=== PATIENT | female | born 1980 | race Caucasian/White ===

== ENCOUNTER 2024-11-23 11:38 | Day surgery (SDC) | payer BC, SELFPAY ==
[2024-11-21 17:36] VITALS: BMI 31.2
--- NOTE | 2024-11-23 11:40 | EXP.HP ---
History of Present Illness *Admission Date: 11/23/24 *History of present illness: Mrs. Chapin is a 44-year-old female who is here for diagnostic EGD secondary to noncardiac chest pain, dyspepsia and dysphagia. The examination is deemed medically necessary for diagnostic EGD. The patient has been seen, interviewed and examined prior to the procedure by both myself and the anesthesia provider. [facility] Disclaimer: The information contained in this section may have been updated after the patient was seen, as this information can be updated by other users. Medical History Scoliosis Vaginal endometriosis History of DVT of lower extremity Surgical History History of tubal ligation History of back surgery Family History Mother Heart attack Father Hypertension Hyperlipidemia Cancer Social History Smoking Status: Never smoker alcohol intake: never substance use type: denies use current occupational status: employed Travel in the last 8 weeks?: Inside the [place] household members: spouse and children housing: house Have you lived/traveled outside [place] in past 30 days?: No Contact w/someone who lives/traveled outside [place] past 30 days?: No Exposure to someone with infectious disease in past 14 days?: No Do you have a fever (greater than 100.4 F or 38 C)?: No Have you tested positive for COVID-19?: No Exposed to someone with COVID-19 in past 14 days?: No Do you have a sore throat?: No Do you have a cough?: No Do you have any weakness?: No Do you have any diarrhea?: No Are you experiencing any unusual bleeding?: No Do you have any muscle aches/pain?: No Do you have any abdominal pain?: No Are you experiencing loss of taste or smell?: No Review of Systems Review of Systems Review of systems (narrative): Negative *Cardiovascular Comments: Negative *Gastrointestinal Comments: Negative *Genitourinary Comments: Negative *Musculoskeletal Comments: Negative *Neurologic Comments: Negative Meds Home Medications and Allergies Home Medications ?Medication ?Instructions ?Recorded ?Confirmed ?Type aspirin 81 mg tablet,delayed 81 mg PO DAILY 09/07/24 11/21/24 History release (Adult Aspirin Regimen) cetirizine 10 mg capsule (Zyrtec) 10 mg PO DAILY 09/07/24 11/21/24 History cholecalciferol (vitamin D3) 125 125 mcg PO DAILY 09/07/24 11/21/24 History mcg (5,000 unit) capsule fluoxetine 20 mg capsule 20 mg PO DAILY 09/07/24 11/21/24 History omeprazole 40 mg capsule,delayed 40 mg PO DAILY 09/07/24 11/21/24 History release cholecalciferol (vitamin D3) 125 5,000 unit PO DAILY 11/21/24 11/21/24 History mcg (5,000 unit) tablet (Vitamin D3) New Prescriptions to Start Prescriptions: Allergies Allergy/AdvReac Type Severity Reaction Status Date / Time amoxicillin (From Augmentin) Allergy Rash Verified 11/21/24 14:36 azithromycin Allergy Vomiting Verified 11/21/24 14:36 clavulanic acid (From Allergy Rash Verified 11/21/24 14:36 Augmentin) codeine Allergy Swelling Verified 11/21/24 14:36 of Lip/Tongue/Throat Penicillins Allergy Rash Verified 11/21/24 14:36 Exam Data for Last 24 hours I & O for Last 24 hours: Intake & Output 11/20/24 11/21/24 11/22/24 11/23/24 23:59 23:59 23:59 23:59 Weight 160 lb *Routine HEENT Exam Head: Present normocephalic Eye: Present EOMI and PERRL ENT: Present mucous membranes moist *Routine Neck Exam Neck: Present supple *Routine Respiratory Exam Respiratory: Present CTA bilaterally *Routine Cardiovascular Exam Cardiovascular: Present RRR *Routine Abdominal Exam Abdominal: Present soft and normoactive bowel sounds; Absent tenderness *Routine Rectal Exam Rectal:: deferred *Routine Genitalia Exam Genitalia:: deferred *Routine Extremities Exam Extremities: Absent cyanosis, clubbing or edema *Routine Skin Exam Skin: Present warm; Absent rash *Routine Neurological Exam Neurological: Present alert and oriented X3 Assessment and Plan *Assessment and plan (1) Non-cardiac chest pain: Status: Acute Category: Medical Code(s): R07.89 - Other chest pain (2) Heartburn: Status: Acute Category: Medical Code(s): R12 - Heartburn (3) Dysphagia: Status: Acute Category: Medical Code(s): R13.10 - Dysphagia, unspecified (4) Dyspepsia: Status: Acute Category: Medical Code(s): R10.13 - Epigastric pain Plan A/P: 1. Noncardiac chest pain with dyspepsia and dysphagia and heartburn is the preprocedural diagnosis. The patient will be anesthetized/sedated using MAC sedation. The patient has been seen and examined. Cardiac and lung assessment prior to the examination is stable. Proceed with planned diagnostic EGD.
[2024-11-23 12:07] VITALS: BP 151/80; PULSE 61; RESP 20; TEMP 36.6; O2SAT 100
--- NOTE | 2024-11-23 12:24 | EXP.ANES.CKL ---
[facility] Disclaimer: The information contained in this section may have been updated after the patient was seen, as this information can be updated by other users. Medical History Scoliosis Vaginal endometriosis History of DVT of lower extremity Surgical History History of tubal ligation History of back surgery Family History Mother Heart attack Father Hypertension Hyperlipidemia Cancer Social History Smoking Status: Never smoker alcohol intake: never substance use type: denies use current occupational status: employed Travel in the last 8 weeks?: Inside the [place] household members: spouse and children housing: house Have you lived/traveled outside [place] in past 30 days?: No Contact w/someone who lives/traveled outside [place] past 30 days?: No Exposure to someone with infectious disease in past 14 days?: No Do you have a fever (greater than 100.4 F or 38 C)?: No Have you tested positive for COVID-19?: No Exposed to someone with COVID-19 in past 14 days?: No Do you have a sore throat?: No Do you have a cough?: No Do you have any weakness?: No Do you have any diarrhea?: No Are you experiencing any unusual bleeding?: No Do you have any muscle aches/pain?: No Do you have any abdominal pain?: No Are you experiencing loss of taste or smell?: No [facility] Anesthesia Checklist Patient Identification Patient Identification: Arm Band and Verbal (Name & ) Structural Data Admitted From: Home Planned Operative Procedure/s: EGD Verified Documents: Surgical Consent NPO Status Verified Time NPO: 00:00 Additional verifications Patient : No Anesthesia Reactions: No Airway Assessment Mallampati Score:: Class II C-Spine Mobility Assessed: Yes TMJ Mobility Assessed: Yes Dentition: Good Dentition Neurological Assessment Level of Consciousness: Awake, Alert and Appropriate Hx Seizures: No Numbness or tingling in extremities: No Anesthesia Plan Anesthesia Risk discussed: Yes Anesthesia Plan: Verified ASA Class: II Anesthesia Type: MAC
[2024-11-23 12:52] LABS: HCG Qualitative, Serum Negative (Negative)
--- NOTE | 2024-11-23 13:00 | P.PCN_ITS ---
[facility] Procedure Note Date: 11/23/24 Time: 13:11 Procedure Note:: Upper Endoscopy Procedure Report: Esophagogastroduodenoscopy with cold biopsies Endoscopost: Shahid Joiner II, MD Referring Physician: DULCE Jose Date of Procedure: November 23, 2024 Equipment: Olympus GIF 190 standard upper endoscope Sedation: MAC sedation Indications: Mrs. Chapin is a 44-year-old female who states that she was having some swallowing difficulties in the fall 2023 (January through possibly Apr). She did see ENT and had laryngoscopy with no abnormality. In May 2024 she had significant right retrosternal chest pain that radiated into the back. She did have extensive cardiac testing which was normal and this was deemed to be noncardiac chest pain. Since then she has had complete resolution but will have occasional twinges of discomfort in the same region. She reports no heartburn or reflux. She was placed on omeprazole. She reports no bloating, gassiness or belching. She reports no nausea, early satiety or dysphagia. She reports regular bowel function. EGD is performed for diagnostic evaluation of her noncardiac chest pain. Procedure: Prior to the procedure, a history and physical exam was performed, and patient's medications and allergies were reviewed. The risks, benefits and alternatives of the sedation and procedure were discussed with the patient. All questions were answered and informed consent was obtained. The patient was brought to the procedure room. Patient identification and proposed procedure were verified by the physician and the nurse. The patient was placed in a left lateral decubitus position and the scope was passed under direct vision. Throughout the procedure, the patient's blood pressure, pulse, and oxygen saturations were monitored continuously. The upper GI endoscopy was accomplished without difficulty. The patient tolerated the procedure well. Findings: The scope was passed directly into the upper esophagus and advanced to the third portion of the duodenum. The post bulbar duodenum, ampulla and duodenal bulb were normal with normal mucosa and conniventes. The scope was withdrawn through a normal duodenal bulb and pylorus into the stomach. There was mild bile reflux with very mild linear reactive gastropathy of the antrum. The body and fundus of the stomach were grossly normal. Upon retroflexion there was no hiatal hernia. Cold biopsies were taken from the antrum. The scope was then withdrawn into the esophagus. There was no evidence of reflux esophagitis or Mary's. There were no strictures, corrugation, furrowing. There were tertiary contractions and evidence of mild esophageal dysmotility. There was a small proximal esophageal inlet patch (6 to 7 mm) which was biopsied. The remainder of the esophageal mucosa was normal. Impression: 1. Small 6 to 7 mm proximal esophageal inlet patch 2. Mild esophageal dysmotility 3. Mild linear reactive gastropathy of antrum Plan: I will follow-up the biopsies and discuss the findings with the patient and family. 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 I do not feel that she will need to remain on PPI therapy long-term.
[2024-11-23 13:16] VITALS: BP 93/50; PULSE 63; RESP 16; TEMP 36.2; O2SAT 99
[2024-11-23 13:26] VITALS: BP 100/63; PULSE 60; RESP 18; O2SAT 99
[2024-11-23 13:36] VITALS: BP 112/56; PULSE 60; RESP 18; O2SAT 99
[2024-11-23 13:57] VITALS: BP 132/55; PULSE 56; RESP 18; TEMP 36.2; O2SAT 99
== END 2024-11-23 13:46 | disposition home or self-care (01) ==
PROVIDERS: PCP Nurse Practitioner Family; Visit Provider Internal Medicine Gastroenterology
PROC: 0DJ08ZZ Inspection of Upper Intestinal Tract, Via Natural or Artificial Opening Endoscopic (ICD-10-PCS; CPT 43239; principal; 2024-11-23 13:00)
DX: K29.50 Unspecified chronic gastritis without bleeding (principal); K20.90 Esophagitis, unspecified without bleeding; Z86.718 Personal history of other venous thrombosis and embolism; Z88.1 Allergy status to other antibiotic agents; Z88.5 Allergy status to narcotic agent; Z88.0 Allergy status to penicillin; Z79.82 Long term (current) use of aspirin; Z79.899 Other long term (current) drug therapy
CPT/HCPCS: 43239; 84703; J2003; J2405; J2704